=== PATIENT | female | born 2000 | race Caucasian/White ===

== ENCOUNTER 2024-01-17 01:32 | Emergency (ER) | payer OTHER ==
[~2024-01-17] VITALS: Ht 165.1 cm; Wt 67.0 kg
[2024-01-17 01:37] VITALS: BP 142/86; PULSE 100; RESP 16; TEMP 98; O2SAT 98
[2024-01-17 03:15] LABS: EOSINOPHILS % 0.3 % (0.0-5.0); HEMATOCRIT. 37.6 % (36.0-48.0); HEMOGLOBIN. 12.4 g/dL (12.0-16.0); LYMPHOCYTES % 26.1 % (20.0-50.0); MEAN CORPUSCULAR HEMOGLOBIN 30.2 pg (28.0-32.0); MEAN CORPUSCULAR HGB CONC 32.9 g/dL (31.0-37.0); MEAN CORPUSCULAR VOLUME 91.8 fL (81.0-99.0); MEAN PLATELET VOLUME 7.9 fl (7.4-10.4); MONOCYTES % 6.4 % (2.0-8.0); NEUTROPHILS % 66.2 % (40.0-76.0); PLATELET 412 x1000/uL (130-400); RED CELL DISTRIBUTION WIDTH 12.7 % (11.6-14.6)
[2024-01-17 03:20] LABS: CHLORIDE 104 mEq/L (98-107); POTASSIUM 3.1 mEq/L (3.5-5.1); SODIUM 138 mEq/L (136-145)
[2024-01-17 03:21] LABS: CARBON DIOXIDE 25 mEq/L (21-32)
[2024-01-17 03:22] LABS: CALCIUM 9.2 mg/dL (8.7-10.4)
[2024-01-17 03:26] LABS: CREATININE 0.7 mg/dL (0.6-1.0); GLUCOSE 88 mg/dL (70-105); UREA NITROGEN BLOOD 8 mg/dL (9-23)
[2024-01-17 03:28] LABS: ACETAMINOPHEN < 2 ug/mL (10-30)
[2024-01-17] MEDS ORDERED: ACETAMINOPHEN 325MG TABLET PO ONE (03:30)
[2024-01-17 04:00] LABS: ETHANOL BLOOD < 10 mg/dL (<10)
== END 2024-01-17 07:21 | disposition left against medical advice (07) ==
LOC: ER 01:32
DX: R07.81 Pleurodynia (principal); W01.0XXA Fall on same level from slipping, tripping and stumbling without subsequent striking against object, initial encounter; Y93.89 Activity, other specified; Y92.89 Other specified places as the place of occurrence of the external cause; Y99.8 Other external cause status
CPT/HCPCS: 36415; 71101; 80048; 80307; 80320; 80329; 85025; 99284; G0480